=== PATIENT | female | born 1945 | race Asian ===

== ENCOUNTER 2018-01-09 07:51 | Day surgery (SDC) | END 2018-01-09 13:49 | disposition home or self-care (01) ==

== ENCOUNTER 2018-08-27 06:32 | Day surgery (SDC) | payer OTHER ==
--- NOTE | 2018-08-26 13:18 | PREOPHP ---
DATE OF ADMISSION: 08/27/2018 HISTORY OF PRESENT ILLNESS: This 73-year-old patient is admitted for elective cataract surgery of th e right eye. The patient has had decreased vision in both eyes over the past year's time. PAST MEDICAL HISTORY: The patient does have a positive systemic history for xdi-ytahgem-uqhzvvrai di abetes mellitus for the past 24 years as well as systemic hypertension and hypercholesterolemia. CURRENT MEDICATIONS: Include: 1. Metformin. 2. Glipizide. 3. Pravastatin. 4. Losartan. ALLERGIES: THERE ARE NO KNOWN ALLERGIES. 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 PHYSICAL EXAMINATION: The visual acuity best corrected is 20/40 in each eye. Slit lamp examination reveals moderately advanced nuclear sclerotic cataract with vacuolar changes in both eyes. Applanati on tonometry is 12 mmHg in both eyes. Examination of the retina reveals a posterior vitreous detachm ent in the right eye and some mild macular pigment changes in both eyes. DIAGNOSIS: Nuclear sclerotic cataract, right eye. PLAN: Cataract extraction with lens implant, right eye. The risks and alternatives to the surgery h ave been discussed with the patient as well as the hope for improvement in visual acuity leading to g reater ability to perform activities of daily living. The patient understands this and agrees to pro ceed with surgery. Dictated By: MIRIAN ROPER/TREVON Conf#: [id number] DID#: [id number]
[2018-08-27] VITALS (9 sets, daily range): BP systolic 151–185; BP diastolic 61–86; PULSE 64–89; RESP 12–18; Ht 157.5 cm; Wt 56.2 kg
[~2018-08-27] VITALS: Ht 157.5 cm; Wt 56.2 kg
[~2018-08-27 06:32] MED LIST: GLIM4TAB PO; LOSARTAN PO; MTF1000T PO
[2018-08-27] MEDS ORDERED: DICLOFENAC 0.1% 2.5 ML OPH OPER SCH (07:00)
[2018-08-27] MEDS ORDERED: CYCLOPENTOLATE/PHENYLEPH 2 ML OPH OPER SCH (07:00)
[2018-08-27] MEDS ORDERED: SOD CHLORIDE 0.9% 1,000 ML IV SCH (07:00)
[2018-08-27] MEDS ORDERED: TROPICAMIDE 1% 15 ML OPH OPER SCH (07:00)
[2018-08-27] MEDS ORDERED: MOXIFLOXACIN 0.5% 3 ML OPH OPER SCH (07:00)
[2018-08-27] MEDS ORDERED: MTF1000T PO (07:28)
[2018-08-27] MEDS ORDERED: GLIM4TAB PO (07:28)
[2018-08-27] MEDS ORDERED: PRAV40TA76 PO (07:29)
[2018-08-27] MEDS ORDERED: LOSA25TA12 PO (07:29)
[2018-08-27] MEDS ORDERED: ONDANSETRON 4 MG INJ IV PRN (08:00)
[2018-08-27] MEDS ORDERED: FENTAnyl 50 MCG/ML VIAL IV PRN (08:00)
[2018-08-27] MEDS ORDERED: LIDOCAINE 4% (MPF) 5 ML INJ ONE (08:17)
[2018-08-27] MEDS ORDERED: CARBACHOL 0.01% 1.5 ML OPH INJ ONE (08:17)
[2018-08-27] MEDS ORDERED: CEFAZOLIN 1 GM INJ ONE (08:17)
[2018-08-27] MEDS ORDERED: NA HYALURONATE/CHONDROITIN 0.5 ML SYG ONE (08:18)
[2018-08-27] MEDS ORDERED: DEXAMETHASONE 4 MG/ML 1 ML INJ ONE (08:18)
--- NOTE | 2018-08-27 08:35 | PREAC ---
Date/Time of Note Date/Time of Note DATE: 08/27/18 TIME: 08:33 Anesthesia Eval and Record Evaluation Time Pre-Procedure Interview DATE: 08/27/18 TIME: 08:33 Age 73 Sex female NPO: 8 hrs Preoperative diagnosis rt cataract Planned procedure Rt cataract extraction IOL implant Past Medical History Past Medical History: Includes Cardio: HTN Endo: Diabetes Surgery & Anesthesia Issues No known issue Meds Anticoagulation: No Beta Rajesh within 24 hr: No Reason Beta Rajesh not given: Pt. not on B-Rajesh Reported Medications Pravastatin Sodium* (Pravastatin Sodium*) 40 Mg Tablet, 40 MG PO HS, TAB 08/27/18 Losartan Potassium* (Losartan Potassium*) 25 Mg Tablet, 12.5 MG PO DAILY, TAB 08/27/18 Glimepiride* (Glimepiride*) 4 Mg Tablet, 4 MG PO BID WITH MEALS, TAB 08/27/18 Metformin* (Glucophage*) 1,000 Mg Tablet, 1000 MG PO BID, #60 TAB 08/27/18 Discontinued Reported Medications [Losartan] No Conflict Check, PO 01/09/18 Glimepiride* (Glimepiride*) 4 Mg Tablet, 4 MG PO WITH BREAKFAST DINNE, TAB 01/09/18 Metformin* (Glucophage*) 1,000 Mg Tablet, 1000 MG PO DAILY, #30 TAB 01/09/18 Current Medications Diclofenac Sodium (Voltaren 0.1%) 1 drop Q5 MIN X 3 OPER Last administered on 08/27/18at 07:34; Admin Dose 1 DROP; Start 08/27/18 at 07:00 Tropicamide (Mydriacyl 1%) 1 drop Q5 MIN X3 OPER Last administered on 08/27/18at 07:34; Admin Dose 1 DROP; Start 08/27/18 at 07:00 Moxifloxacin HCl (Vigamox) 1 drop Q5 MIN X 3 OPER Last administered on 08/27/18at 07:34; Admin Dose 1 DROP; Start 08/27/18 at 07:00 Cyclopentolate/ Phenylephrine (Cyclomydril Oph 2 ml) 1 drop Q5 MIN X 3 OPER Last administered on 08/27/18at 07:34; Admin Dose 1 DROP; Start 08/27/18 at 07:00 Sodium Chloride 1,000 ml @ 25 mls/hr Q24H IV Last administered on 08/27/18at 07:33; Admin Dose 25 MLS/HR; Start 08/27/18 at 07:00 Fentanyl (Sublimaze) 25 mcg PACU ORDER PRN IV MILD PAIN 1-3; Start 08/27/18 at 08:00; Stop 08/27/18 at 12:00 Ondansetron HCl (Zofran Inj) 4 mg PACU ORDER PRN IV NAUSEA/VOMITING; Start 08/27/18 at 08:00; Stop 08/27/18 at 12:00 Meds reviewed: Yes Allergies Coded Allergies: No Known Allergy (Unverified , 01/09/18) Allergies Reviewed: Yes Labs/Studies Labs Reviewed: Reviewed by anesthesiologist test: Negative Studies: ECG Pre-procedure Exam Last vitals Vital Signs Date Temp Pulse Resp B/P (MAP) Pulse Ox O2 O2 Flow FiO2 Time Delivery Rate 08/27/18 97.9 68 16 163/72 98 Room Air 07:43 (102) Airway: Adequate mouth opening, Adequate thyromental dist Mallampati: Mallampati I Teeth: Normal Lung: Normal Heart: Normal ASA Physical Status ASA physical status: 2 Emergency: None Planned Anesthetic General/MAC: MAC Planned Pain Management Local by surgeon Pre-operative Attestations Prior to commencing anesthesia and surgery, the patient was re-evaluated, there was verification of: *The patient's identity *The results of appropriate recent lab work and preoperative vital signs *The above evaluation not changing prior to induction *Anesthetic plan, risk benefits, alternative and complications discussed with patient/family; questions answered; patient/family understands, accepts and wishes to proceed. CRISPIN CRESPO CONDITIONER TUMBLER Aug 27, 2018 08:35
[2018-08-27] MEDS ORDERED: PROPOFOL 20 ML ONE (08:51)
[2018-08-27] MEDS ORDERED: LIDOCAINE 2% (SDV) 5 ML INJ ONE (08:51)
--- NOTE | 2018-08-27 09:11 | SIPON ---
Date/Time of Note Date/Time of Note DATE: 08/27/18 TIME: 09:10 Operative Report Preoperative Diagnosis nuclear sclerotic cataract od Postoperative Diagnosis same Operation/Procedure Performed cataract extraction with lens implant od Surgeon mirian harding hygiene assistant none Anesthesia: MAC Estimated blood loss: none Transfusion Required none Specimen none Grafts/Implants posterior chamber lens implant Complications none MIRIAN HARDING MD Aug 27, 2018 09:11
[2018-08-27] MEDS ORDERED: hydrALAzine 20 MG INJ ONE (09:22)
--- NOTE | 2018-08-27 09:25 | OPR ---
DATE OF OPERATION: 08/27/2018 PREOPERATIVE DIAGNOSIS: Nuclear sclerotic cataract, right eye. POSTOPERATIVE DIAGNOSIS: Nuclear sclerotic cataract, right eye. OPERATION PERFORMED: Cataract extraction with lens implant, right eye. ANESTHESIA: Local standby. ANESTHESIOLOGIST: Torrey Campbell CRNA PROCEDURE: The patient was brought to the operating room and placed on the table with an IV in place and the patient attached to an ekg monitor tech. Oxygen was given via face mask. After some intravenous sedation was administered, local anesthesia was given using Xylocaine 2% with epinephrine, mixed with Marcaine 0.5%. This was given in a lid block and retrobulbar injection. The patient was then prepped and draped in the usual sterile manner. A wire lid speculum was inserted between the lids of the right eye. A Superblade was used to enter t he anterior chamber at the corneoscleral limbus at the 10:30 o'clock position. A separate incision w as made using a 3.0-mm keratome which entered the corneoscleral junction at the 12 o'clock position. Through this 3-mm opening, an irrigating cystotome was introduced into the anterior chamber. The ch jak was filled with Viscoat and an anterior capsulotomy was performed. Balanced salt solution was then used for hydrodissection of the lens. A phacoemulsification handpiece was then brought into the field and introduced into the anterior chamber. The lens nucleus was emulsified using a deep groove and cracking the nucleus into quadrants. Following this, each quadrant was aspirated and emulsified at the pupillary margin. After this was completed, the irrigation/aspiration handpiece was brought to the field, introduced in to the posterior chamber, and the lens cortical material was removed. When this was completed, addit ional Viscoat was injected into the anterior and posterior chambers. The 3-mm opening had its internal lips enlarged, and then the posterior chamber intraocular lens laura uring 23.5 diopters ([employer] model LI61AO) was then injected into the posterior c hamber using the lens injector system. After the leading haptic was introduced into the capsular bag and the lens optic was present in the center of the eye, the injector was removed and the trailing h aptic was grasped with non-toothed forceps and introduced into the capsular fold superiorly. A [place] ey hook was then used to rotate the intraocular lens so that the lips were oriented in the horizontal meridian. One 10-0 nylon suture was placed across the wound. Prior to tying, the irrigation/aspiration handpiece was reintroduced into the anterior chamber to rem ove the Viscoat. Miochol was instilled to constrict the pupil, and then the 10-0 nylon suture was ti ed. The ends were cut short and then the knot was buried. Then, 0.5 mL of dexamethasone and 0.5 mL of Ancef were injected into the sub-Tenon space in the infer ior fornix. Ciloxan drops were then placed on the surface of the eye. The speculum was removed and a patch was applied. The patient then left the operating room in satisfactory condition. Dictated By: MIRIAN ROPER/TREVON Conf#: [id number] DID#: [id number] CC: MIRIAN HARDING MD;*EndCC*
[2018-08-27] MEDS: hydrALAzine 20 MG INJ IV PRN ×2 (09:32→09:35)
--- NOTE | 2018-08-27 09:46 | PAC ---
Date/Time of Note Date/Time of Note DATE: 08/27/18 TIME: 09:46 Post-Anesthesia Notes Post-Anesthesia Note Last documented vital signs Vital Signs Date Temp Pulse Resp B/P (MAP) Pulse Ox O2 O2 Flow FiO2 Time Delivery Rate 08/27/18 97.9 68 16 163/72 98 Room Air 07:43 (102) Activity: WNL Respiratory function: WNL Cardiovascular function: WNL Mental status: Baseline Pain reasonably controlled: Yes Hydration appropriate: Yes Nausea/Vomiting absent: Yes CRISPIN CRESPO CRNA Aug 27, 2018 09:46
== END 2018-08-27 10:09 | disposition home or self-care (01) ==
LOC: SDS 06:32
PROVIDERS: ATTEND Ophthalmology
DX: H25.011 Cortical age-related cataract, right eye (principal); I10 Essential (primary) hypertension; E11.9 Type 2 diabetes mellitus without complications; Z79.84 Long term (current) use of oral hypoglycemic drugs
CPT/HCPCS: 66984; 82962; J0360; J0690; J1100; J7030; V2632; Z7512; Z7610